=== PATIENT | female | born 1960 | race Caucasian/White ===

== ENCOUNTER 2018-03-12 14:29 | Inpatient (IN) | payer MEDICARE ==
[~2018-03-12] VITALS: Ht 162.6 cm; Wt 48.1 kg
[~2018-03-12 14:29] MED LIST: ACYC400 PO; ACYC800 PO; ALBU90OI INH; ALPR.25 PO; ALPR1 PO; AZIT250 PO; BENZ100A PO; Bactrim Ds Tab1 EACH PO; CEFA250 PO; CEFD300 PO; CEFP200 PO; CEPH500 PO; CIPRO500 MG PO; CIPRSO OS; COMBIVENT RESPIM4 GM IH; COMBIVENT RESPIM4 GM INH; CYCL10 PO; Ceftriaxone2 G1 IV; ESCI20 PO; GABA100 PO; HYDACE5; HYDACE5 PO; HYDMOR2 PO; HYOS.125 SL; INTE3SY; Keflex500 MG PO; LANS30EC PO; LEVO750 PO; LORA.5 PO; METO10 PO; MULVITA; Neurontin 100100 MG PO; Norco 5-325 Ta1 EACH PO; OFLO.3OPSO BOTHEYES; ONDA4; OXYB5 PO; OXYB5ER PO; OXYC10TA19 PO; OXYC15ER PO; OXYC5; PROM25 PO; Pyridium100 MG PO; Pyridium200 MG PO; QUET100; QUET200 PO; QUET300; RIBA200; Refresh Plus1 EACH BOTHEYES; Roxicodone5 MG PO; SULTRIDS PO; SULTRISS PO; TRAM50 PO; TRAZ100; ZOLP10 PO; Zofran4 MG PO; Zofran8 MG PO; [UNRECOGNIZED DRUG - REMARK]; [UNRECOGNIZED DRUG - REMARK]
[2018-03-12 15:25] LABS: BASOPHILS ABSOLUTE AUTO 0.07 K/mm3 (0.00-0.23); BASOPHILS PERCENT AUTO 1 % (0-2); EOSINOPHILS PERCENT AUTO 3 % (0-6); Hematocrit 34.7 % (33.0-51.0); Hemoglobin 11.6 g/dL (11.5-16.0); IMMATURE GRAN ABSOLUTE AUTO 0.09 K/mm3 (0.00-0.10); IMMATURE GRAN PERCENT AUTO 1 % (0-1); LYMPHOCYTES ABSOLUTE AUTO 1.63 K/mm3 (0.84-5.20); LYMPHOCYTES PERCENT AUTO 21 % (21-46); MONOCYTES ABSOLUTE AUTO 1.01 K/mm3 (0.16-1.47); MONOCYTES PERCENT AUTO 13 % (4-13); Mean Corpuscular HGB 29.1 pg (26.0-34.0); Mean Corpuscular HGB Conc 33.4 g/dL (31.5-36.5); Mean Corpuscular Volume 87 fL (80-100); Mean Platelet Volume 10.9 fL (9.1-12.4); NEUTROPHILS ABSOLUTE AUTO 4.67 K/mm3 (1.96-9.15); NEUTROPHILS PERCENT AUTO 61 % (41-73); Platelet Count 122 K/mm3 (150-400); RDW Coefficient Variation 13.4 % (11.7-14.2); Red Blood Cell Count 3.98 M/mm3 (3.80-5.20); White Blood Cell Count 7.67 K/mm3 (4.00-11.30)
[2018-03-12 15:43] LABS: Alanine Aminotransfer (ALT/SGP 52 U/L (12-78); Albumin, Blood 3.2 g/dL (3.4-5.0); Alk Phos 115 U/L (50-136); Anion Gap 8 mmol/L (6-16); Aspartate Aminotrans (AST/SGOT 76 U/L (12-37); Bilirubin, Total 0.6 mg/dL (0.1-1.0); Blood Urea Nitrogen 14 mg/dL (8-24); Bun/Creatinine Ratio 19.7 (12.0-20.0); CO2, Blood 25 mmol/L (21-32); Chloride, Blood 106 mmol/L (98-108); Creatinine, Blood 0.71 mg/dL (0.40-1.00); Globulin, Blood 3.3 g/dL (2.2-4.0); Glomerular Filtration Rate >60 (60-); Glucose, Blood 135 mg/dL (70-99); Potassium, Blood 3.5 mmol/L (3.5-5.5); Sodium, Blood 139 mmol/L (136-145); Total Protein, Blood 6.5 g/dL (6.4-8.2)
[2018-03-12 15:48] LABS: International Normalized Ratio 1.07; Prothrombin Time Results 11.2 Sec (9.7-11.5)
[2018-03-12] MEDS ORDERED: TRIA15CR3 TOP (19:08)
[2018-03-12] MEDS ORDERED: GAZYVA1000 MG/40 IV (19:08)
[2018-03-13 02:29] LABS: Source, Urine Clean Catch
[2018-03-13 02:48] LABS: Bilirubin, Urine Neg (Neg); Blood, Urine Neg (Neg); Glucose Qualitative, Urine Neg (Neg); Ketones, Urine Neg (Neg); Leukocyte Esterase, Urine 2+ (Neg); Nitrite, Urine Neg (Neg); Protein, Urine Neg (Neg); Specific Gravity, Urine 1.015 (1.003-1.022); Urobilinogen, Urine NORM (Normal); pH, Urine 6.5 (5.0-8.0)
[2018-03-13 02:53] LABS: Appearance, Urine Hazy (Clear); Color, Urine Yellow (P-Yellow)
[2018-03-13 02:57] LABS: Bacteria Rare /hpf; Mucus Light (0-Heavy); Red Blood Cells, Urine Not Seen /hpf (0-2); Squamous Epithelial Cells Rare /hpf (Few)
[2018-03-13 05:30] LABS: BASOPHILS ABSOLUTE AUTO 0.06 K/mm3 (0.00-0.23); BASOPHILS PERCENT AUTO 1 % (0-2); EOSINOPHILS ABSOLUTE AUTO 0.18 K/mm3 (0.00-0.68); EOSINOPHILS PERCENT AUTO 4 % (0-6); Hematocrit 32.6 % (33.0-51.0); Hemoglobin 10.7 g/dL (11.5-16.0); IMMATURE GRAN ABSOLUTE AUTO 0.12 K/mm3 (0.00-0.10); IMMATURE GRAN PERCENT AUTO 2 % (0-1); LYMPHOCYTES ABSOLUTE AUTO 1.23 K/mm3 (0.84-5.20); LYMPHOCYTES PERCENT AUTO 25 % (21-46); MONOCYTES ABSOLUTE AUTO 0.81 K/mm3 (0.16-1.47); MONOCYTES PERCENT AUTO 16 % (4-13); Mean Corpuscular HGB 28.8 pg (26.0-34.0); Mean Corpuscular HGB Conc 32.8 g/dL (31.5-36.5); Mean Corpuscular Volume 88 fL (80-100); Mean Platelet Volume 10.7 fL (9.1-12.4); NEUTROPHILS ABSOLUTE AUTO 2.53 K/mm3 (1.96-9.15); NEUTROPHILS PERCENT AUTO 51 % (41-73); Platelet Count 107 K/mm3 (150-400); RDW Coefficient Variation 13.4 % (11.7-14.2); RDW Standard Deviation 42.9 fL (35.1-46.3); Red Blood Cell Count 3.72 M/mm3 (3.80-5.20); White Blood Cell Count 4.93 K/mm3 (4.00-11.30)
[2018-03-13 05:47] LABS: Anion Gap 4 mmol/L (6-16); Blood Urea Nitrogen 11 mg/dL (8-24); Bun/Creatinine Ratio 14.4 (12.0-20.0); CO2, Blood 28 mmol/L (21-32); Calcium, Blood 8.1 mg/dL (8.5-10.1); Chloride, Blood 108 mmol/L (98-108); Creatinine, Blood 0.76 mg/dL (0.40-1.00); Glomerular Filtration Rate >60 (60-); Glucose, Blood 100 mg/dL (70-99); Potassium, Blood 3.5 mmol/L (3.5-5.5); Sodium, Blood 140 mmol/L (136-145)
[2018-03-14] MEDS ORDERED: Cephalexin500 MG PO (11:34)
== END 2018-03-14 12:49 | disposition home or self-care (01) | DRG 872 ==
LOC: ER 14:29 → MEDS 14:30 → ENPENDDIS 03-14 09:30 → MEDS 03-14 12:49
PROVIDERS: Hospitalist; Nurse Practitioner Family
DX: A41.9 Sepsis, unspecified organism (principal); C91.10 Chronic lymphocytic leukemia of B-cell type not having achieved remission; L03.116 Cellulitis of left lower limb; L30.8 Other specified dermatitis; G58.9 Mononeuropathy, unspecified; F41.9 Anxiety disorder, unspecified; F32.9 Major depressive disorder, single episode, unspecified; F17.200 Nicotine dependence, unspecified, uncomplicated; Z92.21 Personal history of antineoplastic chemotherapy; Z88.6 Allergy status to analgesic agent; Z88.5 Allergy status to narcotic agent; Z88.0 Allergy status to penicillin; Z88.8 Allergy status to other drugs, medicaments and biological substances; Z79.899 Other long term (current) drug therapy; Z87.440 Personal history of urinary (tract) infections
CPT/HCPCS: 36415; 80048; 80053; 81001; 83605; 85025; 85610; 85730; 87040; 87086; 96365; 96366; 99285; J0690; J1642; J1650; J3370; J7030; J7120

== ENCOUNTER 2019-05-15 19:23 | Emergency (ER) | payer MEDICARE, OTHER ==
[~2019-05-15] VITALS: Ht 167.6 cm; Wt 48.5 kg
[~2019-05-15 19:23] MED LIST changes: +Cephalexin500 MG PO; +GAZYVA1000 MG/40 IV; +TRIA15CR3 TOP
[2019-05-15] MEDS ORDERED: IMBRUVICA420 MG PO (19:53)
[2019-05-15] MEDS ORDERED: MONDOXYNE NL100 MG PO (19:54)
[2019-05-15 20:12] LABS: Hematocrit 37.8 % (33.0-51.0); Hemoglobin 11.5 g/dL (11.5-16.0); Mean Corpuscular HGB 28.5 pg (26.0-34.0); Mean Corpuscular HGB Conc 30.4 g/dL (31.5-36.5); Mean Corpuscular Volume 94 fL (80-100); Mean Platelet Volume 11.4 fL (9.1-12.4); Platelet Count 143 K/mm3 (150-400); RDW Coefficient Variation 13.7 % (11.7-14.2); RDW Standard Deviation 45.8 fL (35.1-46.3); Red Blood Cell Count 4.04 M/mm3 (3.80-5.20)
[2019-05-15 20:25] LABS: White Blood Cell Count 144.29 K/mm3 (4.00-11.30)
[2019-05-15 20:27] LABS: Bun/Creatinine Ratio 13.8 (12.0-20.0); Calcium, Blood 8.6 mg/dL (8.5-10.1); Creatinine, Blood 1.09 mg/dL (0.40-1.00); Potassium, Blood 3.8 mmol/L (3.5-5.5)
[2019-05-15 21:05] LABS: BAND PERCENT MAN 1 % (0-8); BASOPHILS PERCENT MAN 0 % (0-2); EOSINOPHILS PERCENT MAN 0 % (0-6); LYMPHOCYTES ABSOLUTE MAN 134.18 K/mm3 (0.84-5.20); LYMPHOCYTES PERCENT MAN 93 % (21-46); MONOCYTES ABSOLUTE MAN 1.44 K/mm3 (0.16-1.47); MONOCYTES PERCENT MAN 1 % (4-13); NEUTROPHILS ABSOLUTE MAN 8.65 K/mm3 (1.96-9.15); SEG NEUTROPHILS PERCENT MAN 5 % (41-73); TOTAL CELLS COUNTED 100
== END 2019-05-15 21:04 | disposition home or self-care (01) ==
LOC: ER 19:23
PROVIDERS: Physician Assistant
DX: R60.0 Localized edema (principal); Z88.6 Allergy status to analgesic agent; Z88.0 Allergy status to penicillin; Z88.8 Allergy status to other drugs, medicaments and biological substances; Z88.5 Allergy status to narcotic agent; Z88.2 Allergy status to sulfonamides; Z79.899 Other long term (current) drug therapy; J44.9 Chronic obstructive pulmonary disease, unspecified; F17.200 Nicotine dependence, unspecified, uncomplicated
CPT/HCPCS: 36415; 80048; 85025; 93971; 99284-25

== ENCOUNTER 2020-02-26 20:49 | Emergency (ER) | payer OTHER ==
[~2020-02-26] VITALS: Ht 162.6 cm; Wt 49.9 kg
[~2020-02-26 20:49] MED LIST changes: +IMBRUVICA420 MG PO; +MONDOXYNE NL100 MG PO
[2020-02-26] MEDS ORDERED: Vibramycin100 MG PO (21:18)
== END 2020-02-26 21:23 | disposition home or self-care (01) ==
LOC: ER 20:49
DX: L02.414 Cutaneous abscess of left upper limb (principal); L02.413 Cutaneous abscess of right upper limb; L02.415 Cutaneous abscess of right lower limb; F17.200 Nicotine dependence, unspecified, uncomplicated; Z86.14 Personal history of Methicillin resistant Staphylococcus aureus infection; Z88.0 Allergy status to penicillin; Z88.6 Allergy status to analgesic agent; Z88.5 Allergy status to narcotic agent; Z88.1 Allergy status to other antibiotic agents; Z88.2 Allergy status to sulfonamides; Z88.8 Allergy status to other drugs, medicaments and biological substances; Z91.09 Other allergy status, other than to drugs and biological substances; Z79.899 Other long term (current) drug therapy
CPT/HCPCS: 99283

== ENCOUNTER 2021-02-12 11:33 | Emergency (ER) | payer MEDICARE, OTHER ==
[~2021-02-12] VITALS: Ht 162.6 cm; Wt 46.7 kg
[~2021-02-12 11:33] MED LIST changes: +Vibramycin100 MG PO
== END 2021-02-12 14:40 | disposition left against medical advice (07) ==
LOC: ER 11:33
DX: S69.92XA Unspecified injury of left wrist, hand and finger(s), initial encounter (principal)
CPT/HCPCS: 73130

== ENCOUNTER → 2022-05-09 | Emergency (ER) | payer MEDICARE, OTHER ==
[~2022-05-09] VITALS: Ht 162.6 cm; Wt 45.4 kg
== END ==
LOC: ER 07:06
DX: M25.532 Pain in left wrist (principal); F17.210 Nicotine dependence, cigarettes, uncomplicated; Z88.6 Allergy status to analgesic agent; Z88.0 Allergy status to penicillin; Z88.1 Allergy status to other antibiotic agents; Z88.5 Allergy status to narcotic agent; Z88.2 Allergy status to sulfonamides; Z79.899 Other long term (current) drug therapy
CPT/HCPCS: 73110

== ENCOUNTER 2022-12-16 20:28 | Emergency (ER) | payer MEDICARE, OTHER ==
[~2022-12-16] VITALS: Ht 162.6 cm; Wt 49.9 kg
[2022-12-16] MEDS ORDERED: Miralax17 GM PO (22:09)
[2022-12-16] MEDS ORDERED: OXAYDO5 M1 PO (22:09)
[2022-12-16] MEDS ORDERED: EPCLUSA 400 MG1 EAC1 PO (22:17)
[2022-12-16] MEDS ORDERED: METOPROLOL SUCC25 MG PO (22:18)
[2022-12-16] MEDS ORDERED: Triamcinolone A15 G2 TOP (22:18)
[2022-12-16] MEDS ORDERED: ONDA4ODT MM (22:19)
== END 2022-12-16 22:20 | disposition home or self-care (01) ==
LOC: ER 20:28
DX: S29.011A Strain of muscle and tendon of front wall of thorax, initial encounter (principal); J44.9 Chronic obstructive pulmonary disease, unspecified; F17.200 Nicotine dependence, unspecified, uncomplicated; Z79.899 Other long term (current) drug therapy; Z88.0 Allergy status to penicillin; Z88.8 Allergy status to other drugs, medicaments and biological substances; Z88.5 Allergy status to narcotic agent; Z88.2 Allergy status to sulfonamides; X50.1XXA Overexertion from prolonged static or awkward postures, initial encounter
CPT/HCPCS: 71046; 99283-25; A9270

== ENCOUNTER 2023-11-17 03:11 | Inpatient (IN) | payer MEDICARE, OTHER ==
[~2023-11-17] VITALS: Ht 162.6 cm; Wt 43.4 kg
[~2023-11-17 03:11] MED LIST changes: +EPCLUSA 400 MG1 EAC1 PO; +METOPROLOL SUCC25 MG PO; +Miralax17 GM PO; +ONDA4ODT MM; +OXAYDO5 M1 PO; +Triamcinolone A15 G2 TOP
[2023-11-17] MEDS ORDERED: [UNRECOGNIZED DRUG - OTHER] PO (04:24)
[2023-11-17 04:28] LABS: Hematocrit 28.8 % (33.0-51.0); Hemoglobin 8.3 g/dL (11.5-16.0); Mean Corpuscular HGB 23.4 pg (26.0-34.0); Mean Corpuscular HGB Conc 28.8 g/dL (31.5-36.5); Mean Corpuscular Volume 81 fL (80-100); Mean Platelet Volume 9.2 fL (9.1-12.4); NRBC ABSOLUTE 0.03 K/mm3 (0.00-0.02); Platelet Count 126 K/mm3 (150-400); RDW Coefficient Variation 17.8 % (11.7-14.2); RDW Standard Deviation 49.2 fL (35.1-46.3); Red Blood Cell Count 3.54 M/mm3 (3.80-5.20)
[2023-11-17 04:53] LABS: White Blood Cell Count 266.38 K/mm3 (4.00-11.30)
[2023-11-17 05:02] LABS: Albumin/Globulin Ratio 0.6 (0.8-1.8); Bilirubin, Total 0.6 mg/dL (0.1-1.0); Bun/Creatinine Ratio 30.4 (12.0-20.0); Calcium, Blood 6.8 mg/dL (8.5-10.1); Creatinine, Blood 1.61 mg/dL (0.40-1.00); Globulin, Blood 3.4 g/dL (2.2-4.0); Potassium, Blood 4.7 mmol/L (3.5-5.5); Total Protein, Blood 5.4 g/dL (6.4-8.2)
[2023-11-17 05:36] LABS: BASOPHILS PERCENT MAN 0 % (0-2); EOSINOPHILS PERCENT MAN 0 % (0-6); LYMPHOCYTES ABSOLUTE MAN 239.74 K/mm3 (0.84-5.20); LYMPHOCYTES PERCENT MAN 90 % (21-46); MONOCYTES PERCENT MAN 0 % (4-13); NEUTROPHILS ABSOLUTE MAN 26.63 K/mm3 (1.96-9.15); SEG NEUTROPHILS PERCENT MAN 10 % (41-73); TOTAL CELLS COUNTED 100
[2023-11-17] MEDS ORDERED: Triamcinolone A15 GM TOP (11:30)
[2023-11-17 11:44] VITALS: BP 125/75
[2023-11-17 15:58] VITALS: BP 123/76
--- NOTE | 2023-11-17 17:38 | NUR ---
SHIFT SUMMARY PATIENT IS ALERT AND ORIENTED. PATIENT IS A RECENT ADMIT FROM ED. PATIENT HAS HAD NO ACUTE EVENTS THIS SHIFT. VITAL SIGNS REVIEWED. PATIENT IS ADMITTED FOR CELLULITIS. DR KIM HAS SEEN PATIENT IN ROOM. PATIENT HAS BEEN HAVING PAIN AND MEDICATED PER EMAR. PATIENT HAS NOT COMPLAINED OF NAUSEA, SOB OR VOMITTING. BED IN LOCKED AND LOWEST POSITION. CALL LIGHT IN PLACE. WILL MONITOR UNTIL SHIFT CHANGE.
[2023-11-17 20:27] VITALS: BP 141/84
[2023-11-18 02:34] VITALS: BP 125/78
--- NOTE | 2023-11-18 04:29 | NUR ---
SHIFT SUMMARY 1899: ASSUMED CARE OF PT, BEDSIDE REPORT RECEIVED FROM DAY SHIFT RN. PT IS A/O X4. LAYING IN BED WITH HOB ELEVATED, FRIEND AT THE BEDSIDE. PT IS INCONTINENT OF STOOL OF URINE MULTIPLE TIMES DURING THE NIGHT. ASSISTANCE REQUIRED WITH CHANGING. PT IS UNABLE TO TRANSFER AT THIS TIME PER PT. PAIN TO RLE AND WORSENING WEAKNESS. FLUIDS FINISHED TO RUE IV PER ORDERS. PT SALINE LOCKED. NO ACUTE EVENTS DURING THE EVENING. RLE DRESSED WITH ABD PADS AND KERLIX PER PT REQUEST, DRAINING LIGHT YELLOW FLUID. NEEDS ADDRESSED AND SAFETY MEASURES TAKEN THROUGHOUT THE NIGHT.
[2023-11-18 05:30] LABS: Hematocrit 28.5 % (33.0-51.0); Hemoglobin 8.3 g/dL (11.5-16.0); Mean Corpuscular HGB 24.1 pg (26.0-34.0); Mean Corpuscular HGB Conc 29.1 g/dL (31.5-36.5); Mean Corpuscular Volume 83 fL (80-100); Mean Platelet Volume 9.2 fL (9.1-12.4); NRBC ABSOLUTE 0.03 K/mm3 (0.00-0.02); Platelet Count 131 K/mm3 (150-400); RDW Standard Deviation 50.9 fL (35.1-46.3); Red Blood Cell Count 3.44 M/mm3 (3.80-5.20)
[2023-11-18 05:50] LABS: Albumin, Blood 2.6 g/dL (3.4-5.0); Albumin/Globulin Ratio 0.7 (0.8-1.8); Bilirubin, Total 0.6 mg/dL (0.1-1.0); Bun/Creatinine Ratio 29.6 (12.0-20.0); Creatinine, Blood 1.25 mg/dL (0.40-1.00); Globulin, Blood 3.5 g/dL (2.2-4.0); Potassium, Blood 5.1 mmol/L (3.5-5.5); Total Protein, Blood 6.1 g/dL (6.4-8.2)
[2023-11-18 05:54] LABS: White Blood Cell Count 243.17 K/mm3 (4.00-11.30)
[2023-11-18 07:22] LABS: BASOPHILS PERCENT MAN 0 % (0-2); EOSINOPHILS PERCENT MAN 0 % (0-6); LYMPHOCYTES PERCENT MAN 98 % (21-46); METAMYELOCYTE ABSOLUTE MAN 2.43 K/mm3 (0.00-0.00); METAMYELOCYTE PERCENT MAN 1 % (0-0); MONOCYTES PERCENT MAN 0 % (4-13); NEUTROPHILS ABSOLUTE MAN 2.43 K/mm3 (1.96-9.15); SEG NEUTROPHILS PERCENT MAN 1 % (41-73); TOTAL CELLS COUNTED 100
[2023-11-18 07:32] VITALS: BP 111/74
[2023-11-18 15:16] VITALS: BP 134/90
--- NOTE | 2023-11-18 16:39 | NUR ---
SHIFT SUMMARY Pt remains A&Ox3 this shift. Pain managed with po Dilaudid. Pt ambulating in hallway with FWW. Encouraged to put socks on while up. Incontinent with brief in place, however pt did go in the bathroom for BM today. RLE dressing remains CDI. IV antibiotics given as ordered. Pain and safety maintained. Will continue to monitor.
[2023-11-18 20:25] VITALS: BP 135/80
[2023-11-19 05:28] VITALS: BP 135/78
--- NOTE | 2023-11-19 06:21 | NUR ---
SHIFT SUMMARY: PT IS ADMITTED FOR CELLULITIS AND IS A FULL CODE. IS ALERT AND ABLE TO MAKE NEEDS KNOWN. ADLs HAVE BEEN INDEPENDENT THROUGHOUT SHIFT. IS ON CONTACT [facility]. WAS GIVEN PRN PAIN MANAGEMENT X2. SAHRA REPORTS JUAN @ 96.
[2023-11-19 06:29] LABS: Hematocrit 28.6 % (33.0-51.0); Hemoglobin 8.5 g/dL (11.5-16.0); Mean Corpuscular HGB 24.3 pg (26.0-34.0); Mean Corpuscular HGB Conc 29.7 g/dL (31.5-36.5); Mean Corpuscular Volume 82 fL (80-100); Mean Platelet Volume 9.2 fL (9.1-12.4); Platelet Count 124 K/mm3 (150-400); RDW Coefficient Variation 18.3 % (11.7-14.2); RDW Standard Deviation 51.1 fL (35.1-46.3)
[2023-11-19 06:45] LABS: Bun/Creatinine Ratio 31.5 (12.0-20.0); Calcium, Blood 8.6 mg/dL (8.5-10.1); Creatinine, Blood 1.11 mg/dL (0.40-1.00); Potassium, Blood 4.6 mmol/L (3.5-5.5)
[2023-11-19 07:23] LABS: BASOPHILS PERCENT MAN 0 % (0-2); EOSINOPHILS PERCENT MAN 0 % (0-6); LYMPHOCYTES ABSOLUTE MAN 214.08 K/mm3 (0.84-5.20); LYMPHOCYTES PERCENT MAN 96 % (21-46); MONOCYTES PERCENT MAN 0 % (4-13); NEUTROPHILS ABSOLUTE MAN 8.92 K/mm3 (1.96-9.15); SEG NEUTROPHILS PERCENT MAN 4 % (41-73); TOTAL CELLS COUNTED 100
[2023-11-19 08:04] VITALS: BP 130/85
[2023-11-19 15:42] VITALS: BP 150/85
--- NOTE | 2023-11-19 16:03 | NUR ---
SHIFT SUMMARY PATIENT IS ALERT AND ORIENTED. PATIENT HAS HAD NO ACUTE EVENTS THIS SHIFT. VITAL SIGNS REVIEWED. IV FLUIDS INFUSED ORDERED. PATIENT HAS BEEN MEDICATED FOR PAIN THIS SHIFT. PATIENT HAS NOT COMPLAINED OF NAUSEA, SOB OR VOMITTING THIS SHIFT. DR KIM HAS SEEN PT AND CONSULTED WITH COMPLAINTS OF PATIENTS CELLULITIS. PATIENT HAS BEEN MOSTLY IND THIS SHIFT. BED IN LOCKED AND LOWEST POSITION. CALL LIGHT IN PLACE. WILL MONITOR UNTIL SHIFT CHANGE.
[2023-11-19 19:39] VITALS: BP 115/80
[2023-11-20 05:14] LABS: EOSINOPHILS PERCENT AUTO 0 % (0-6); Hemoglobin 7.7 g/dL (11.5-16.0); Mean Corpuscular HGB 24.1 pg (26.0-34.0); Mean Corpuscular HGB Conc 28.5 g/dL (31.5-36.5); Mean Corpuscular Volume 84 fL (80-100); Mean Platelet Volume 9.5 fL (9.1-12.4); Platelet Count 123 K/mm3 (150-400); RDW Coefficient Variation 18.1 % (11.7-14.2); RDW Standard Deviation 52.3 fL (35.1-46.3)
[2023-11-20 05:23] LABS: BASOPHILS ABSOLUTE AUTO 0.07 K/mm3 (0.00-0.23); BASOPHILS PERCENT AUTO 0 % (0-2); IMMATURE GRAN PERCENT AUTO 1 % (0-1); LYMPHOCYTES ABSOLUTE AUTO 205.77 K/mm3 (0.84-5.20); LYMPHOCYTES PERCENT AUTO 94 % (21-46); MONOCYTES ABSOLUTE AUTO 2.72 K/mm3 (0.16-1.47); MONOCYTES PERCENT AUTO 1 % (4-13); NEUTROPHILS PERCENT AUTO 5 % (41-73)
[2023-11-20 05:24] LABS: White Blood Cell Count 219.46 K/mm3 (4.00-11.30)
[2023-11-20 05:27] VITALS: BP 117/63
[2023-11-20 05:42] LABS: Albumin, Blood 2.7 g/dL (3.4-5.0); Albumin/Globulin Ratio 0.8 (0.8-1.8); Bilirubin, Total 0.4 mg/dL (0.1-1.0); Bun/Creatinine Ratio 35.5 (12.0-20.0); Calcium, Blood 8.6 mg/dL (8.5-10.1); Creatinine, Blood 1.07 mg/dL (0.40-1.00); Globulin, Blood 3.3 g/dL (2.2-4.0); Potassium, Blood 4.2 mmol/L (3.5-5.5)
--- NOTE | 2023-11-20 06:23 | NUR ---
SHIFT SUMMARY: PT IS ADMITTED FOR CELLULITIS AND IS A FULL CODE. IS ALERT AND ABLE TO MAKE NEEDS KNOWN. HAS BEEN INDEPENDENT FOR MOST ACTIVITIES THROUGH SHIFT. IS ON CONTACT [facility] FOR HX OF MRSA. WAS GIVEN PRN PAIN MANAGEMENT X2 THIS SHIFT. IV TO RIGHT FOREARM IS PATENT WITH DRESSING THAT IS CDI. SAHRA REPORTS SINUS @ 88.
[2023-11-20 07:40] VITALS: BP 129/78
[2023-11-20 15:15] VITALS: BP 125/75
--- NOTE | 2023-11-20 16:46 | NUR ---
SHIFT SUMMARY PATIENT IS ALERT AND ORIENTED. PATIENT HAS HAD NO ACUTE EVENTS THIS SHIFT. IV FLUIDS INFUSED ORDERED. PATIENT HAS HAD NO COMPLAINTS OF NAUSEA, SOB OR VOMITTING. PATIENT HAS HAD PAIN THIS SHIFT, MEDICATED PER EMAR. PATIENT HAS BEEN IND IN ROOM THIS SHIFT. PATIENTS LEG HAS BEEN OPEN TO AIR THIS SHIFT. BED IN LOCKED AND LOWEST POSITION. CALL LIGHT IN PLACE. WILL MONITOR UNTIL SHIFT CHANGE.
[2023-11-20 19:53] VITALS: BP 124/84
[2023-11-21 04:59] LABS: Hematocrit 28.6 % (33.0-51.0); Mean Corpuscular HGB 23.7 pg (26.0-34.0); Mean Corpuscular Volume 85 fL (80-100); Mean Platelet Volume 10.2 fL (9.1-12.4); Platelet Count 160 K/mm3 (150-400); RDW Coefficient Variation 18.2 % (11.7-14.2); RDW Standard Deviation 52.3 fL (35.1-46.3); Red Blood Cell Count 3.37 M/mm3 (3.80-5.20)
[2023-11-21 05:18] VITALS: BP 118/75
[2023-11-21 05:23] LABS: Albumin, Blood 2.7 g/dL (3.4-5.0); Albumin/Globulin Ratio 0.8 (0.8-1.8); Bilirubin, Total 0.3 mg/dL (0.1-1.0); Bun/Creatinine Ratio 38.1 (12.0-20.0); Calcium, Blood 8.8 mg/dL (8.5-10.1); Creatinine, Blood 0.92 mg/dL (0.40-1.00); Globulin, Blood 3.3 g/dL (2.2-4.0); Potassium, Blood 3.8 mmol/L (3.5-5.5)
[2023-11-21 06:15] LABS: BASOPHILS PERCENT MAN 0 % (0-2); EOSINOPHILS PERCENT MAN 0 % (0-6); LYMPHOCYTES ABSOLUTE MAN 216.18 K/mm3 (0.84-5.20); LYMPHOCYTES PERCENT MAN 90 % (21-46); MONOCYTES PERCENT MAN 0 % (4-13); NEUTROPHILS ABSOLUTE MAN 24.02 K/mm3 (1.96-9.15); SEG NEUTROPHILS PERCENT MAN 10 % (41-73); TOTAL CELLS COUNTED 100
--- NOTE | 2023-11-21 06:44 | NUR ---
SHIFT SUMMARY: PT IS ADMITTED FOR CELLULITIS AND IS A FULL CODE. IS ALERT AND ABLE TO MAKE NEEDS KNOWN. HAS BEEN INDEPENDENT FOR MOST ACTIVITIES THROUGH SHIFT. IS ON CONTACT [facility] FOR HX OF MRSA. WAS GIVEN PRN PAIN MANAGEMENT X2 THIS SHIFT. IV TO RIGHT FOREARM IS PATENT WITH DRESSING THAT IS CDI.
[2023-11-21 07:08] VITALS: BP 129/79
[2023-11-21 11:29] LABS: COMPLEMENT COMPONENT 3 147 mg/dL (90-180); COMPLEMENT COMPONENT 4 35 mg/dL (10-40)
[2023-11-21 15:49] VITALS: BP 138/79
--- NOTE | 2023-11-21 16:28 | NUR ---
SHIFT SUMMARY PATIENT IS ALERT AND ORIENTED. PATIENT HAS HAD NO ACUTE EVENTS THIS SHIFT. VITAL SIGNS REVIEWED. IV ABX INFUSED ORDERED. PATIENT HAS BEEN IND THIS SHIFT. PATIENT HAS NOT COMPLAINED OF SOB, NAUSEA, OR VOMITTING. PATIENT HAS COMPLAINED OF PAIN AND MEDICATED ONCE THIS SHIFT. BED IN LOCKED AND LOWEST POSITION. CALL LIGHT IN PLACE.
[2023-11-21 21:58] VITALS: BP 136/80
[2023-11-21 22:03] LABS: MYELOPEROXIDASE (MPO) AB,IGG 0 AU/mL (0-19); SERINE PROTEINASE 3 PR3 AB,IGG 0 AU/mL (0-19)
[2023-11-22 02:19] VITALS: BP 125/76
--- NOTE | 2023-11-22 04:06 | NUR ---
SHIFT SUMMARY 63 YR F ADMITTED ON 11/17/23. FULL CODE. NO ACUTE CHANGES THIS SHIFT. PT C/O PAIN IN HER LOWER EXTREMITIES AND MEDICATED EFFECTIVELY PER EMAR. SHE IS A&O X4 AND IS ABLE TO GET UP TO BEDSIDE COMMODE W/ 1 ASSIST. SHE IS PLEASANT AND COOPERATIVE WITH CARE AND CALLS APPROPRIATELY FOR ASSISTANCE. BED IN LOW POSITION AND CALL LIGHT IN REACH.
[2023-11-22 05:00] LABS: Hematocrit 25.5 % (33.0-51.0); Mean Corpuscular HGB 23.7 pg (26.0-34.0); Mean Corpuscular HGB Conc 27.5 g/dL (31.5-36.5); Mean Corpuscular Volume 86 fL (80-100); Mean Platelet Volume 9.8 fL (9.1-12.4); NRBC ABSOLUTE 0.02 K/mm3 (0.00-0.02); Platelet Count 142 K/mm3 (150-400); RDW Coefficient Variation 18.4 % (11.7-14.2); RDW Standard Deviation 53.7 fL (35.1-46.3); Red Blood Cell Count 2.95 M/mm3 (3.80-5.20)
[2023-11-22 05:35] LABS: Albumin, Blood 2.6 g/dL (3.4-5.0); Albumin/Globulin Ratio 0.9 (0.8-1.8); Bilirubin, Total 0.2 mg/dL (0.1-1.0); Bun/Creatinine Ratio 40.3 (12.0-20.0); Calcium, Blood 8.6 mg/dL (8.5-10.1); Creatinine, Blood 0.8 mg/dL (0.40-1.00); Globulin, Blood 2.8 g/dL (2.2-4.0); Total Protein, Blood 5.4 g/dL (6.4-8.2)
[2023-11-22 05:44] LABS: White Blood Cell Count 200.97 K/mm3 (4.00-11.30)
[2023-11-22 06:27] LABS: BASOPHILS PERCENT MAN 0 % (0-2); EOSINOPHILS PERCENT MAN 0 % (0-6); LYMPHOCYTES ABSOLUTE MAN 184.89 K/mm3 (0.84-5.20); LYMPHOCYTES PERCENT MAN 92 % (21-46); MONOCYTES PERCENT MAN 1 % (4-13); NEUTROPHILS ABSOLUTE MAN 14.06 K/mm3 (1.96-9.15); SEG NEUTROPHILS PERCENT MAN 7 % (41-73); TOTAL CELLS COUNTED 100
[2023-11-22 07:37] VITALS: BP 123/66
[2023-11-22 13:10] LABS: Hematocrit 29.7 % (33.0-51.0); Hemoglobin 8.1 g/dL (11.5-16.0)
[2023-11-22 15:19] VITALS: BP 133/90
--- NOTE | 2023-11-22 16:08 | NUR ---
SHIFT SUMMARY Pt remains A&Ox3 this shift. VSS. Resp even nonlabored on RA. Up to bsc with min ast. Generalized pain managed with po Dilaudid. RLE with lotion applied. No further needs id or verbalized at this time.
[2023-11-22 20:16] VITALS: BP 142/87
[2023-11-23 02:25] VITALS: BP 122/73
--- NOTE | 2023-11-23 04:10 | NUR ---
SHIFT SUMMARY PT A&OX4 AND ANSWERS QUESTIONS APPROPRIATELY. PT SLEPT MOST OF SHIFT, WAKING UP FOR SNACKS. LOTION APPLIED TO RLE TO RELIEVE SCALING. OINTMENT APPLIED TO OPEN AREAS PER EMAR. VSS. NO ACUTE EVENTS DURING SHIFT. PT LEFT IN A POSITION OF SAFETY WITH APPROPRIATE FALL PRECAUTIONS IN PLACE AND CALL LIGHT IN REACH.
[2023-11-23 04:58] LABS: EOSINOPHILS ABSOLUTE AUTO 0.06 K/mm3 (0.00-0.68); EOSINOPHILS PERCENT AUTO 0 % (0-6); Hematocrit 26.9 % (33.0-51.0); Hemoglobin 7.5 g/dL (11.5-16.0); Mean Corpuscular HGB 24.2 pg (26.0-34.0); Mean Corpuscular HGB Conc 27.9 g/dL (31.5-36.5); Mean Corpuscular Volume 87 fL (80-100); Mean Platelet Volume 9.5 fL (9.1-12.4); NRBC ABSOLUTE 0.03 K/mm3 (0.00-0.02); Platelet Count 174 K/mm3 (150-400); RDW Coefficient Variation 18.7 % (11.7-14.2); RDW Standard Deviation 54.4 fL (35.1-46.3)
[2023-11-23 05:19] LABS: Albumin, Blood 2.7 g/dL (3.4-5.0); Albumin/Globulin Ratio 0.9 (0.8-1.8); Bilirubin, Total 0.3 mg/dL (0.1-1.0); Bun/Creatinine Ratio 32.7 (12.0-20.0); Calcium, Blood 8.6 mg/dL (8.5-10.1); Creatinine, Blood 0.98 mg/dL (0.40-1.00); Globulin, Blood 2.9 g/dL (2.2-4.0); Total Protein, Blood 5.6 g/dL (6.4-8.2)
[2023-11-23 05:23] LABS: BASOPHILS ABSOLUTE AUTO 0.15 K/mm3 (0.00-0.23); BASOPHILS PERCENT AUTO 0 % (0-2); IMMATURE GRAN ABSOLUTE AUTO 1.15 K/mm3 (0.00-0.10); IMMATURE GRAN PERCENT AUTO 1 % (0-1); LYMPHOCYTES ABSOLUTE AUTO 201.33 K/mm3 (0.84-5.20); LYMPHOCYTES PERCENT AUTO 93 % (21-46); MONOCYTES ABSOLUTE AUTO 3.72 K/mm3 (0.16-1.47); MONOCYTES PERCENT AUTO 2 % (4-13); NEUTROPHILS ABSOLUTE AUTO 9.65 K/mm3 (1.96-9.15); NEUTROPHILS PERCENT AUTO 5 % (41-73)
[2023-11-23 05:24] LABS: White Blood Cell Count 216.06 K/mm3 (4.00-11.30)
[2023-11-23 05:56] LABS: BASOPHILS PERCENT MAN 0 % (0-2); EOSINOPHILS PERCENT MAN 0 % (0-6); LYMPHOCYTES ABSOLUTE MAN 207.41 K/mm3 (0.84-5.20); LYMPHOCYTES PERCENT MAN 96 % (21-46); MONOCYTES PERCENT MAN 0 % (4-13); NEUTROPHILS ABSOLUTE MAN 8.64 K/mm3 (1.96-9.15); SEG NEUTROPHILS PERCENT MAN 4 % (41-73); TOTAL CELLS COUNTED 100
[2023-11-23 08:02] VITALS: BP 124/74
--- NOTE | 2023-11-23 09:12 | NUR ---
WOUND CARE PT WITH RESOLVING RLE CELLULITIS. RLE WITH DRY AND SCALING SKIN. TOES 1-5 WITH CRUST FROM DRIED EXUDATE. PT REPORTS DEPENDENT EDEMA WITH AMBULATION. SHE REPORTS DAILY COMPRESSION HAS BEEN RECOMMENDED BUT SHE DOES NOT TOLERATE. RECOMMENDED TO PT THAT SHE TAKE ADAQUATE BREAKS DURING AMBULATION AND ELEVATE EXTREMETIES. ALSO RECOMMENDED TRYING A LOWER LEVEL OF COMPRESSION. PT EDUCATED ON DAILY CLEANSING AND USE OF EMOLLIENT LOTION 2-3 TIMES A DAY TO SOFTEN AND REMOVE CRUST FROM TOES THIS IS A BREEDING GROUND FOR BACTERIA AND OFTEN LEADS TO SKIN INFECTION. PT VERBALIZED UNDERSTANDING
[2023-11-23 17:25] VITALS: BP 135/88
[2023-11-23 17:29] LABS: Magnesium, Blood 1.6 mg/dL (1.6-2.4); Phosphorus, Blood 3.4 mg/dL (2.5-4.9)
--- NOTE | 2023-11-23 18:27 | NUR ---
SHIFT SUMMARY- PT IS A/O, PLESANT AND COOPERATIVE. SHE IS EATING AND DRINKING WELL. SHE IS RECIEVING IV ABX.
[2023-11-23 20:12] VITALS: BP 128/73
[2023-11-24] VITALS (16 sets, daily range): BP systolic 120–143; BP diastolic 69–84
--- NOTE | 2023-11-24 04:58 | NUR ---
1900: ASSUMED CARE OF PT. BEDSIDE REPORT RECEIVED FROM DAY SHIFT RN. PT IS LAYING IN BED WITH HOB ELEVATED. A/O X4, BREATHING IS EVEN AND UNLABORED, NO ACUTE DISTRESS DURING THE SHIFT. MEDICATIONS PROVIDED PER ORDERS, PT TOLERATED WELL. SAFETY MEASURES TAKEN AND ALL NEEDS ADDRESSED.
[2023-11-24 05:27] LABS: Hematocrit 24.8 % (33.0-51.0); Hemoglobin 7.1 g/dL (11.5-16.0); Mean Corpuscular HGB 24.5 pg (26.0-34.0); Mean Corpuscular HGB Conc 28.6 g/dL (31.5-36.5); Mean Corpuscular Volume 86 fL (80-100); Mean Platelet Volume 9.5 fL (9.1-12.4); NRBC ABSOLUTE 0.02 K/mm3 (0.00-0.02); Platelet Count 161 K/mm3 (150-400); RDW Coefficient Variation 18.9 % (11.7-14.2); RDW Standard Deviation 54.4 fL (35.1-46.3)
[2023-11-24 05:46] LABS: White Blood Cell Count 168.46 K/mm3 (4.00-11.30)
[2023-11-24 05:48] LABS: Albumin, Blood 2.4 g/dL (3.4-5.0); Albumin/Globulin Ratio 0.9 (0.8-1.8); Bilirubin, Total 0.2 mg/dL (0.1-1.0); Bun/Creatinine Ratio 34.1 (12.0-20.0); Calcium, Blood 8.2 mg/dL (8.5-10.1); Creatinine, Blood 0.88 mg/dL (0.40-1.00); Globulin, Blood 2.7 g/dL (2.2-4.0); Magnesium, Blood 1.9 mg/dL (1.6-2.4); Phosphorus, Blood 3.5 mg/dL (2.5-4.9); Potassium, Blood 4.9 mmol/L (3.5-5.5); Total Protein, Blood 5.1 g/dL (6.4-8.2)
[2023-11-24 06:20] LABS: BASOPHILS PERCENT MAN 0 % (0-2); EOSINOPHILS ABSOLUTE MAN 1.68 K/mm3 (0.00-0.68); EOSINOPHILS PERCENT MAN 1 % (0-6); LYMPHOCYTES ABSOLUTE MAN 160.03 K/mm3 (0.84-5.20); LYMPHOCYTES PERCENT MAN 95 % (21-46); MONOCYTES ABSOLUTE MAN 1.68 K/mm3 (0.16-1.47); MONOCYTES PERCENT MAN 1 % (4-13); NEUTROPHILS ABSOLUTE MAN 5.05 K/mm3 (1.96-9.15); SEG NEUTROPHILS PERCENT MAN 3 % (41-73); TOTAL CELLS COUNTED 100
[2023-11-24 13:53] LABS: Hematocrit 25.4 % (33.0-51.0); Hemoglobin 7.4 g/dL (11.5-16.0)
--- NOTE | 2023-11-24 13:55 | NUR ---
I SPOKE WITH DR. DELANEY AND BEDSIDE RN. DR. DELANEY HAD SPOKEN TO DR. KIM IN ONCOLOGY TODAY AND HE WAS GOING TO HOLD OFF ON HER CHEMO UNTIL HER INFECTION HAD RESOLVED. HE THOUGHT THAT IT WOULD BE A GOOD IDEA FOR HER TO GO TO SNF TO REGAIN STRENGTH. I MET WITH YINA TO DISCUSS WHAT HER GOALS WERE. 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 I LET HER KNOW WHAT THE DOCTORS WERE THINKING. SHE HAD SOME CONCERNS ABOUT RECIEVING BLOOD. SHE REPORTED THAT SHE HAS HAD REACTIONS TO MEDICATIONS BEFORE. I WILL ORDER PRN BENADRYL PER DR. DELANEY. I DISCUSSED SNF WITH THE PATIENT AND SHE IS WILLING TO GO AND PARTICIPATE IN REHAB.
--- NOTE | 2023-11-24 17:53 | NUR ---
ALERT AND ORIENTED, DR DELANEY NURSE AND PALLIATIVE CARE EDUCATED PATIENT ON THE NEED FOR A BLOOD TRANSFUSION HGB 7.1, CONSULT DR KIM ONCOLOGY AND HE IS HOLDING THE CHEMO NOW AND WANTED PATIENT TO HAVE A BLOOD TRANSFUSION, 1 UNIT PRBC INFUSED, NO REACTION, HGB 7.5 BEFORE THE TRANSFUSION. LUNGS DIMINISHED, NO CRACKLES OR RALES, NORMAL HEART TONES, SKIN PEELING, RLOWER LEG CELLULITITS IMPROVED. INDEPEDANT TO BSC, MAKES NEEDS KNOWN, CALL LIGHT WITH IN REACH, WILL RELAY TO PN RN
[2023-11-25 03:42] VITALS: BP 127/67
--- NOTE | 2023-11-25 05:05 | NUR ---
report received verified pt with flat affect laying quietly in bed. pt seems upset and avoided eye contact and demanded her bed be changed. i changed pad and assited pt back to bed. c/o chronic pain to right leg. medicated pt when time was appropriate. family a bedside visiting, pt much more talkative. cont to monitor
[2023-11-25 05:13] LABS: Bun/Creatinine Ratio 29.1 (12.0-20.0); Creatinine, Blood 0.83 mg/dL (0.40-1.00); Magnesium, Blood 1.9 mg/dL (1.6-2.4); Phosphorus, Blood 3.1 mg/dL (2.5-4.9); Potassium, Blood 5.7 mmol/L (3.5-5.5)
[2023-11-25 07:27] VITALS: BP 135/77
--- NOTE | 2023-11-25 12:53 | NUR ---
AMBULATED IN HALLS WITH PT, STEADY GAIT, GOOD APPETITE, CALL LIGHT WITH IN REACH
[2023-11-25 15:17] LABS: CRYOGLOBULIN QUALITATIVE SCRN NEG 72Hour (NEG 72Hour)
[2023-11-25 15:19] VITALS: BP 148/83
--- NOTE | 2023-11-25 18:43 | NUR ---
NO CHANGES, PATIENT EMOTIONAL AND CRYING THIS AM DUE TO POSSIBLE DISCHARGE TO A SNF IN [place] AWAY FROM HER FAMILY, ASSEMBLER PIANO FOUND A LOCAL SNF ACCEPTING AND WILL HAPPEN ON TUESDAY, MEDICATED FOR PAIN REGULARLY, PATIENT AMBULATED X2 TODAY THE LARGE LOOP WITH PT/OT. MAKES NEEDS KNOWN, CALL LIGHT WITH IN REACH
[2023-11-25 20:52] VITALS: BP 126/61
[2023-11-26 05:24] VITALS: BP 127/73
[2023-11-26 05:39] LABS: Bun/Creatinine Ratio 24.4 (12.0-20.0); Calcium, Blood 8.6 mg/dL (8.5-10.1); Creatinine, Blood 0.78 mg/dL (0.40-1.00); Phosphorus, Blood 3.2 mg/dL (2.5-4.9); Potassium, Blood 4.4 mmol/L (3.5-5.5)
[2023-11-26 07:26] VITALS: BP 138/82
--- NOTE | 2023-11-26 07:58 | NUR ---
A/O VSS, PT QUIET IN RM WITHDRAWN, NO CHANGE IN CONDITION MINIMAL C/O PAIN. PT ANTICIPATING GOING TO REHAB ON TUESDAY, PT INDEPENDANT AND MAKES NEEDS KNOW.
[2023-11-26 08:43] LABS: Hematocrit 29.8 % (33.0-51.0); Hemoglobin 9.1 g/dL (11.5-16.0)
[2023-11-26 15:34] VITALS: BP 126/76
--- NOTE | 2023-11-26 19:58 | NUR ---
SUMMARY- PAIN WELL CONTROLLED WITH DIAUDID PO THIS SHIFT. PT IND TO BSC/ROOM. AAOX4.
[2023-11-26 20:43] VITALS: BP 113/68
--- NOTE | 2023-11-26 23:35 | NUR ---
report received verified a/o and still withdrawn, no c/o pain nor distress. pt laying quietly in bed. daughter at bedside request for room to be cleaned. house keeping up to clean room, family greatful.
[2023-11-27 03:44] VITALS: BP 128/75
[2023-11-27 05:49] LABS: Hemoglobin 8.8 g/dL (11.5-16.0)
[2023-11-27 06:43] LABS: Calcium, Blood 8.6 mg/dL (8.5-10.1); Creatinine, Blood 0.81 mg/dL (0.40-1.00); Potassium, Blood 4.2 mmol/L (3.5-5.5)
[2023-11-27 07:44] VITALS: BP 123/70
[2023-11-27 16:13] VITALS: BP 117/59
--- NOTE | 2023-11-27 18:31 | NUR ---
SUMMARY- PT'S PAIN WELL CONTROLLED WITH PO PAIN MEDS. PT WALKED THE ENTIRE HALLWAY AND DOWN TO THE ELEVATORS WITH A WALKER THIS SHIFT. PT TOOK A SHOWER AND RN WAS A SBA FOR ALL ACTIVITIES. PT'S BLE MUCH IMPROVED THIS SHIFT.
[2023-11-27 20:23] VITALS: BP 141/78
--- NOTE | 2023-11-27 23:08 | NUR ---
report received verified finally pt a little more talkative and seeming more optimistic, isnt sure if she needs to stay here or go to a rehab. pt ambulatory in rm still c/o pain to right leg which has been medicated. pt able to communicate needs.
[2023-11-28 05:11] LABS: EOSINOPHILS ABSOLUTE AUTO 0.15 K/mm3 (0.00-0.68); EOSINOPHILS PERCENT AUTO 0 % (0-6); Hemoglobin 8.8 g/dL (11.5-16.0); Mean Corpuscular HGB 26.4 pg (26.0-34.0); Mean Corpuscular HGB Conc 30.3 g/dL (31.5-36.5); Mean Corpuscular Volume 87 fL (80-100); Mean Platelet Volume 9.8 fL (9.1-12.4); Platelet Count 132 K/mm3 (150-400); RDW Coefficient Variation 21.2 % (11.7-14.2); RDW Standard Deviation 64.6 fL (35.1-46.3); Red Blood Cell Count 3.33 M/mm3 (3.80-5.20)
[2023-11-28 05:13] LABS: BASOPHILS ABSOLUTE AUTO 0.32 K/mm3 (0.00-0.23); BASOPHILS PERCENT AUTO 0 % (0-2); IMMATURE GRAN ABSOLUTE AUTO 0.69 K/mm3 (0.00-0.10); IMMATURE GRAN PERCENT AUTO 1 % (0-1); LYMPHOCYTES ABSOLUTE AUTO 109.78 K/mm3 (0.84-5.20); LYMPHOCYTES PERCENT AUTO 91 % (21-46); MONOCYTES ABSOLUTE AUTO 3.21 K/mm3 (0.16-1.47); MONOCYTES PERCENT AUTO 3 % (4-13); NEUTROPHILS ABSOLUTE AUTO 6.15 K/mm3 (1.96-9.15); NEUTROPHILS PERCENT AUTO 5 % (41-73)
[2023-11-28 05:45] LABS: Bun/Creatinine Ratio 21.5 (12.0-20.0); Calcium, Blood 8.7 mg/dL (8.5-10.1); Creatinine, Blood 0.88 mg/dL (0.40-1.00); Potassium, Blood 4.8 mmol/L (3.5-5.5)
[2023-11-28 07:40] VITALS: BP 124/69
[2023-11-28 15:57] VITALS: BP 147/82
--- NOTE | 2023-11-28 17:56 | NUR ---
SUMMARY- NO CHANGES WITH PT THIS SHIFT. PAIN WELL CONTROLLED WITH EMAR MEDS. NO ACUTE EVENTS THIS SHIFT.
[2023-11-28 20:25] VITALS: BP 129/73
--- NOTE | 2023-11-29 04:15 | NUR ---
1900: ASSUMED CARE OF PT, BEDSIDE REPORT RECEIVED FROM BOBBY HALL. PT LAYING IN BED ON HER SIDE WITH RLE ELEVATED ON BEDDING. A/O X4, ABLE TO MAKE NEEDS KNOWN. NO ACUTE EVENT DURING THE SHIFT, BREATHING IS EVEN AND UNLABORED, MEDICATED FOR PAIN, SEE EMR. PT DECLINED OINTMENT FOR WOUNDS. SAFETY MEASURES TAKEN, ALL NEEDS ADDRESSED.
[2023-11-29 05:06] VITALS: BP 122/63
[2023-11-29 08:11] VITALS: BP 144/99
[2023-11-29 12:51] LABS: Influenza A, PCR NEGATIVE (NEGATIVE); Influenza B, PCR NEGATIVE (NEGATIVE); Resp Syncytial Virus, PCR NEGATIVE (NEGATIVE); SARS-Cov-2 (COVID-19) PCR, MMC NEGATIVE (NEGATIVE)
[2023-11-29] MEDS ORDERED: CLOBETASOL EMOL15 G1 TOP (13:18)
[2023-11-29] MEDS ORDERED: CEFTRIAXON1 GM/50 M1 IV (13:19)
[2023-11-29] MEDS ORDERED: ENOX40I SC (13:20)
[2023-11-29] MEDS ORDERED: CLINDAMYCI900 MG/52 IV (13:20)
[2023-11-29] MEDS ORDERED: OXYB5 PO (13:21)
[2023-11-29] MEDS ORDERED: MUPIROCIN1 G1 TOP (13:21)
[2023-11-29] MEDS ORDERED: HYDMOR2 PO (13:21)
[2023-11-29] MEDS ORDERED: B-1100 M1 PO (13:22)
[2023-11-29] MEDS ORDERED: MIRALAX17 GM PO (13:22)
[2023-11-29] MEDS ORDERED: VISBIOME 112.51 EACH PO (13:22)
[2023-11-29] MEDS ORDERED: SODIUM CHLORID100 ML IV (13:23)
[2023-11-29 14:36] VITALS: BP 133/85
--- NOTE | 2023-11-29 15:20 | NUR ---
REPORT GIVEN TO [facility] AT 1515- THIS RN CALLED REPORT TO LOUISE NURSE AT [facility]. ALL QUESTIONS ANSWERED.
--- NOTE | 2023-11-29 17:16 | NUR ---
SUMMARY- NO ACUTE EVENTS THIS SHIFT. NO CHANGES WITH PT. PT'S PAIN WELL CONTROLLED. PT IND IN ROOM. AAOX4.
[2023-11-29 20:11] VITALS: BP 134/75
[2023-11-30 03:08] VITALS: BP 121/75
--- NOTE | 2023-11-30 04:46 | NUR ---
SHIFT SUMMARY. PATIENT IS A 63 YEAR OLD FEMALE IN WITH CELLULITIS. PATIENT IS AOX4. PATIENT IS ABLE TO MAKE HER NEEDS KNOWN AND CALLS APPROPRIATELY. PATIENTS PAIN HAS BEEN WELL MANAGED WITH PRN PAIN MEDICATIONS. PATIENT IS PLEASANT AND COOPERATIVE WITH CARE. PATIENT INDEPENDENT IN ROOM. ON RA. NO EVENTS THIS SHIFT. BED IS LOCKED IN THE LOWEST POSITION WITH CALL LIGHT IN REACH. NO S/S OF DISTRESS NOTED. CARE IS ONGOING.
[2023-11-30 07:39] VITALS: BP 122/69
[2023-11-30 15:14] VITALS: BP 137/77
--- NOTE | 2023-11-30 18:17 | NUR ---
SHIFT SUMMARY- PT IS A/O, PLESANT AND COOPERATIVE. SHE IS EATING AND DRINKING WELL. SHE IS RECIEVING IV ABX. HER BED IS IN THE LOW POSITON AND CALL LIGHT IS WITHIN REACH. PLANNING TO DISCHARGE TOMORROW
[2023-11-30 19:20] VITALS: BP 125/67
[2023-12-01 02:35] VITALS: BP 118/69
[2023-12-01 05:17] LABS: EOSINOPHILS ABSOLUTE AUTO 0.16 K/mm3 (0.00-0.68); EOSINOPHILS PERCENT AUTO 0 % (0-6); Hematocrit 29.3 % (33.0-51.0); Mean Corpuscular HGB 26.6 pg (26.0-34.0); Mean Corpuscular HGB Conc 30.7 g/dL (31.5-36.5); Mean Corpuscular Volume 87 fL (80-100); Mean Platelet Volume 9.7 fL (9.1-12.4); Platelet Count 124 K/mm3 (150-400); RDW Coefficient Variation 21.9 % (11.7-14.2); RDW Standard Deviation 67.6 fL (35.1-46.3); Red Blood Cell Count 3.38 M/mm3 (3.80-5.20)
--- NOTE | 2023-12-01 05:22 | NUR ---
REPORT RECEIVED VERIFIED PT A/O QUIETLY LAYING IN BED, PT EXPRESS THAT SHE DOESNT FEEL BETTER AND FEELS THINGS ARE GETTING WORSE EVEN THOUGH EVERYTHING LOOKS BETTER FOR PT. PLAN IS NOW TO GO HOME INSTEAD OF SNF. PT ABLE TO EXPRESS NEED AND HAS BEEN MEDICATED FOR PAIN
[2023-12-01 05:26] LABS: BASOPHILS ABSOLUTE AUTO 0.21 K/mm3 (0.00-0.23); BASOPHILS PERCENT AUTO 0 % (0-2); IMMATURE GRAN ABSOLUTE AUTO 0.98 K/mm3 (0.00-0.10); IMMATURE GRAN PERCENT AUTO 1 % (0-1); LYMPHOCYTES ABSOLUTE AUTO 89.21 K/mm3 (0.84-5.20); LYMPHOCYTES PERCENT AUTO 87 % (21-46); MONOCYTES ABSOLUTE AUTO 5.33 K/mm3 (0.16-1.47); MONOCYTES PERCENT AUTO 5 % (4-13); NEUTROPHILS ABSOLUTE AUTO 6.41 K/mm3 (1.96-9.15); NEUTROPHILS PERCENT AUTO 6 % (41-73)
[2023-12-01 06:08] LABS: Albumin, Blood 2.9 g/dL (3.4-5.0); Bilirubin, Total 0.2 mg/dL (0.1-1.0); Bun/Creatinine Ratio 26.7 (12.0-20.0); Calcium, Blood 8.8 mg/dL (8.5-10.1); Creatinine, Blood 1.01 mg/dL (0.40-1.00); Globulin, Blood 2.9 g/dL (2.2-4.0); Phosphorus, Blood 3.6 mg/dL (2.5-4.9); Potassium, Blood 4.4 mmol/L (3.5-5.5); Total Protein, Blood 5.8 g/dL (6.4-8.2)
[2023-12-01 07:52] VITALS: BP 128/70
[2023-12-01] MEDS ORDERED: SPIR25 PO (14:59)
--- NOTE | 2023-12-01 16:48 | NUR ---
DISCHARGE NOTE PT DISCHARGED TO HOME WITH [facility], PICKED UP BY LEONEL LACY. THIS NURSE AND THE MANAGER OF EMPLOYEE RELATIONS TOOK HER AND HER PERSONAL BELONGINGS TO THE [facility]. PG REMOVED. DISCHARGE INFORMATION AND EDUCATION PROVIDED TO THE PT. MEDICATIONS FAXED TO THE PHARMACY OF HER CHOICE, HARD SCRIPT PROVIDED.
== END 2023-12-01 16:19 | disposition home health service (06) | DRG 872 ==
LOC: ER 03:11 → ERHOLD 06:25 → MEDS 06:25 → EDBEDREQ 06:30 → MEDS 11:33 → ENPENDDIS 12-01 10:40 → MEDS 12-01 16:19
PROVIDERS: Dermatology; Emergency Medicine; Hospitalist; Internal Medicine; ADMIT Internal Medicine
PROC: 30233N1 Transfusion of Nonautologous Red Blood Cells into Peripheral Vein, Percutaneous Approach (ICD-10-PCS; principal; 2023-11-24)
PROC: 3E03329 Introduction of Other Anti-infective into Peripheral Vein, Percutaneous Approach (ICD-10-PCS; 2023-11-24)
DX: A40.0 Sepsis due to streptococcus, group A (principal); L03.115 Cellulitis of right lower limb; L88 Pyoderma gangrenosum; C91.10 Chronic lymphocytic leukemia of B-cell type not having achieved remission; N17.9 Acute kidney failure, unspecified; R64 Cachexia; Z68.1 Body mass index [BMI] 19.9 or less, adult; D84.9 Immunodeficiency, unspecified; C85.90 Non-Hodgkin lymphoma, unspecified, unspecified site; D64.9 Anemia, unspecified; I10 Essential (primary) hypertension; E86.0 Dehydration; B19.20 Unspecified viral hepatitis C without hepatic coma; D69.8 Other specified hemorrhagic conditions; J44.9 Chronic obstructive pulmonary disease, unspecified; F17.210 Nicotine dependence, cigarettes, uncomplicated; Z88.0 Allergy status to penicillin; Z88.8 Allergy status to other drugs, medicaments and biological substances; Z88.1 Allergy status to other antibiotic agents; Z88.2 Allergy status to sulfonamides; Z91.041 Radiographic dye allergy status; Z79.899 Other long term (current) drug therapy; Z90.710 Acquired absence of both cervix and uterus; Z90.49 Acquired absence of other specified parts of digestive tract; Z98.890 Other specified postprocedural states; Z88.5 Allergy status to narcotic agent; Z11.52 Encounter for screening for COVID-19
CPT/HCPCS: 0241U; 36415; 36430; 73590; 80048; 80053; 82595; 82947; 83516; 83605; 83735; 83880; 84100; 85014; 85018; 85025; 86160; 86430; 86850; 86900; 86901; 86923; 87040; 87070; 87147; 87205; 93306; 93356; 93922; 93925; 93970; 93971; 96365; 96372-59; 96375; 97110; 97116; 97162; 97165; 97530; 97535; 99285-25; A9270; C1751; J0696; J1200; J1650; J2405; J2930; J3010; J7030; J7040; J7050; P9016; P9047

== ENCOUNTER 2024-07-02 10:48 | Emergency (ER) | payer MEDICARE, OTHER ==
[~2024-07-02] VITALS: Ht 157.5 cm; Wt 61.2 kg
[~2024-07-02 10:48] MED LIST changes: +B-1100 M1 PO; +CEFTRIAXON1 GM/50 M1 IV; +CLINDAMYCI900 MG/52 IV; +CLOBETASOL EMOL15 G1 TOP; +ENOX40I SC; +MIRALAX17 GM PO; +MUPIROCIN1 G1 TOP; +SODIUM CHLORID100 ML IV; +SPIR25 PO; +Triamcinolone A15 GM TOP; +VISBIOME 112.51 EACH PO; +[UNRECOGNIZED DRUG - OTHER] PO
[2024-07-02 11:33] LABS: BASOPHILS ABSOLUTE AUTO 0.01 K/mm3 (0.00-0.23); BASOPHILS PERCENT AUTO 0 % (0-2); EOSINOPHILS ABSOLUTE AUTO 0.01 K/mm3 (0.00-0.68); EOSINOPHILS PERCENT AUTO 0 % (0-6); Hematocrit 39.2 % (33.0-51.0); Hemoglobin 12.8 g/dL (11.5-16.0); IMMATURE GRAN ABSOLUTE AUTO 0.03 K/mm3 (0.00-0.10); IMMATURE GRAN PERCENT AUTO 1 % (0-1); LYMPHOCYTES ABSOLUTE AUTO 2.45 K/mm3 (0.84-5.20); LYMPHOCYTES PERCENT AUTO 59 % (21-46); MONOCYTES ABSOLUTE AUTO 0.07 K/mm3 (0.16-1.47); MONOCYTES PERCENT AUTO 2 % (4-13); Mean Corpuscular HGB 27.6 pg (26.0-34.0); Mean Corpuscular HGB Conc 32.7 g/dL (31.5-36.5); Mean Corpuscular Volume 85 fL (80-100); Mean Platelet Volume 9.6 fL (9.1-12.4); NEUTROPHILS ABSOLUTE AUTO 1.56 K/mm3 (1.96-9.15); NEUTROPHILS PERCENT AUTO 38 % (41-73); NRBC ABSOLUTE 0.02 K/mm3 (0.00-0.02); NRBC Auto 0.5 /100 WBC (0.0-0.2); Platelet Count 56 K/mm3 (150-400); RDW Coefficient Variation 14.7 % (11.7-14.2); RDW Standard Deviation 45.1 fL (35.1-46.3); Red Blood Cell Count 4.64 M/mm3 (3.80-5.20); White Blood Cell Count 4.13 K/mm3 (4.00-11.30)
[2024-07-02 11:53] LABS: Base Excess Venous -3.5 mmol/L; Bicarbonate Venous 21.5 mmol/L (24.0-30.0); PCO2 Venous 42.3 mmHg (38-42); pH Blood Venous 7.33 (7.34-7.37)
[2024-07-02 12:04] LABS: Albumin, Blood 3.4 g/dL (3.4-5.0); Albumin/Globulin Ratio 1.4 (0.8-1.8); Bilirubin, Total 0.5 mg/dL (0.1-1.0); Bun/Creatinine Ratio 21.3 (12.0-20.0); Calcium, Blood 7.6 mg/dL (8.5-10.1); Creatinine, Blood 1.41 mg/dL (0.40-1.00); Globulin, Blood 2.4 g/dL (2.2-4.0); Potassium, Blood 4.1 mmol/L (3.5-5.5); Total Protein, Blood 5.8 g/dL (6.4-8.2)
[2024-07-02 13:00] VITALS: BP 136/74
[2024-07-02] MEDS ORDERED: CALCIUM GLUC IN NACL, ISO-OSM 50 ML IV ONE (13:20)
[2024-07-02] MEDS ORDERED: RX Prepack 2 Sprays Naloxone HCL 4 MG/SPRAY UD ONE (14:05)
== END 2024-07-02 15:17 | disposition home or self-care (01) ==
LOC: ER 10:48
PROVIDERS: Emergency Medicine
DX: R40.4 Transient alteration of awareness (principal); G89.29 Other chronic pain; E83.51 Hypocalcemia; C91.10 Chronic lymphocytic leukemia of B-cell type not having achieved remission; F11.90 Opioid use, unspecified, uncomplicated; J44.9 Chronic obstructive pulmonary disease, unspecified; N18.9 Chronic kidney disease, unspecified; F17.210 Nicotine dependence, cigarettes, uncomplicated; Z91.041 Radiographic dye allergy status; Z88.0 Allergy status to penicillin; Z88.8 Allergy status to other drugs, medicaments and biological substances; Z88.5 Allergy status to narcotic agent; Z88.2 Allergy status to sulfonamides
CPT/HCPCS: 36415; 80053; 82140; 82330; 82803; 84550; 85025; 96374; 99285; 99285-25; A9270; J0612; J1642